=== PATIENT | male | born 1960 | race African-American/Black ===

== ENCOUNTER 2017-08-09 11:54 | Emergency (ER) | payer OTHER ==
[~2017-08-09] VITALS: Ht 180.3 cm; Wt 81.6 kg
[~2017-08-09 11:54] MED LIST: ATRIPLA TABLET1 EACH PO; AZITHROMYCIN250 MG PO
[2017-08-09 12:05] VITALS: BP 132/83
[2017-08-09] MEDS ORDERED: OCUFLOX5 ML OP (12:24)
[2017-08-09 12:33] VITALS: BP 132/83
--- NOTE | 2017-08-09 12:39 | Emergency Room Report ---
History of Present Illness General Chief Complaint: Eye Problems Source: Patient Present Illness HPI The patient is a 57-year-old male presenting for possible eye infection. He states that he noticed left eye redness 3 days prior. He states that he noticed a white discharge in the morning after. Pain is described as a 2/10 burning sensation. He denies any visual changes. He states that he has noticed redness in the right eye this morning. He denies any known sick contacts. He states that he uses contact lenses and washes them daily. Denies any injury to the eye recently. He denies any other symptoms including itching, fever, chills, cough, rash, JONES, dizziness Allergies: Coded Allergies: No Known Allergies (Unverified , 09/02/12) Patient History Past Medical History: see triage record Pertinent Family History: none Reviewed Nursing Documentation: PMH: Agreed, PSxH: Agreed Review of Systems All Other Systems: negative except mentioned in HPI Physical Exam Vital Signs Date Time Temp Pulse Resp B/P (MAP) Pulse Ox O2 Delivery O2 Flow Rate FiO2 08/09/17 12:05 98.2 76 16 132/83 98 Room Air Sp02 EP Interpretation: reviewed, normal General Appearance: no apparent distress, alert, GCS 15, non-toxic Head: normocephalic, atraumatic Eyes: left eye lid inflammation, left eye other - white DC, bilateral eye PERRL , bilateral eye EOMI, bilateral eye visual acuity - 20/25, bilateral eye Scleral Injection ENT: hearing grossly normal, normal pharynx, no angioedema, normal voice, uvula midline Neck: full range of motion, supple/symm/no masses Genitourinary: normal inspection, no CVA tenderness Musculoskeletal: back normal, gait/station normal, normal range of motion, non- tender Neurologic: alert, oriented x3, responsive, motor strength/tone normal, sensory intact, speech normal Psychiatric: judgement/insight normal, memory normal, mood/affect normal, no suicidal/homicidal ideation Skin: normal color, no rash, warm/dry, well hydrated Lymphatic: no adenopathy Medical Decision Making PA Attestation Dr. Rivas is my supervising physician. Patient management was discussed with my supervising physician Diagnostic Impression: Primary Impression: Conjunctivitis Qualified Codes: H10.33 - Unspecified acute conjunctivitis, bilateral ER Course The patient is a 57-year-old male presenting for possible eye infection Differential diagnoses considered but not limited to allergic conjunctivitis, bacterial conjunctivitis, viral conjunctivitis, blepharitis, hordeolum Physical exam: Vitals within normal limits. No apparent distress HEENT: There is left eye injection with white discharge and eyelid edema. EOMI. PERRL. R eye has injection only. Otherwise exam is unremarkable The patient will be discharged home with a prescription for ofloxacin and will follow up with PMD. ER precautions are given Last Vital Signs Date Time Temp Pulse Resp B/P (MAP) Pulse Ox O2 Delivery O2 Flow Rate FiO2 08/09/17 12:05 98.2 76 16 132/83 98 Room Air Status: improved Disposition: HOME, SELF-CARE Condition: Improved Scripts Ofloxacin (OCUFLOX) 5 Ml Drops 1 DROP OP Q4HR for 7 Days, ML Prov: HARJIT SAMUEL 08/09/17 Patient Instructions: Bacterial Conjunctivitis Additional Instructions: I discussed my findings with the patient. All questions and concerns have been answered. Treatment and medication compliance have been addressed. I advised the patient that they need to follow up with PMD in 3-5 days. Return to ED if symptoms worsen, new symptoms arise, or if needed for any reason. Patient verbalized understanding of discharge instructions. HARJIT SAMUEL Aug 09, 2017 12:39
== END 2017-08-09 12:33 | disposition home or self-care (01) ==
LOC: EMR 12:25
DX: H10.9 Unspecified conjunctivitis (principal)
CPT/HCPCS: 99283

== ENCOUNTER 2017-11-15 00:28 | Emergency (ER) | payer OTHER ==
[~2017-11-15] VITALS: Ht 183.5 cm; Wt 113.4 kg
[~2017-11-15 00:28] MED LIST changes: +OCUFLOX5 ML OP
[2017-11-15 00:35] VITALS: BP 171/96
[2017-11-15] MEDS ORDERED: GENVOYA TABLET1 EACH PO (00:39)
[2017-11-15] MEDS ORDERED: PREDNISONE20 MG ORAL (01:05)
[2017-11-15] MEDS ORDERED: ALBUTEROL SULF8.5 GM INH (01:05)
--- NOTE | 2017-11-15 01:05 | Emergency Room Report ---
History of Present Illness General Chief Complaint: Upper Respiratory Illness Source: Patient Present Illness HPI Is a 57-year-old male with a history HIV. He presents with complaint of cough and congestion. Onset yesterday. No nausea no vomiting. No fever or chills. Worse with inspiration. Worse with lying flat. Coughing is productive of whitish sputum. Allergies: Coded Allergies: No Known Allergies (Unverified , 09/02/12) Patient History Past Medical History: see triage record, old chart reviewed Past Surgical History: none Pertinent Family History: none Social History: Denies: smoking Immunizations: other Reviewed Nursing Documentation: PMH: Agreed, PSxH: Agreed Nursing Documentation-PMH Past Medical History: No History, Except For Review of Systems Eye: Denies: eye pain, blurred vision ENT: Denies: ear pain, nose congestion, throat swelling Respiratory: Reports: cough, shortness of breath Cardiovascular: Denies: chest pain, palpitations Gastrointestinal: Denies: abdominal pain, diarrhea, nausea, vomiting Musculoskeletal: Denies: back pain, joint pain Skin: Denies: rash Neurological: Denies: headache, numbness Endocrine: Denies: increased thirst, increased urine Hematologic/Lymphatic: Denies: easy bruising All Other Systems: negative except mentioned in HPI Physical Exam Vital Signs Date Time Temp Pulse Resp B/P (MAP) Pulse Ox O2 Delivery O2 Flow Rate FiO2 11/15/17 00:35 99.1 97 18 171/96 97 Room Air vitals with high blood pressure Sp02 EP Interpretation: reviewed, normal General Appearance: well appearing, no apparent distress, alert Head: normocephalic, atraumatic Eyes: bilateral eye PERRL, bilateral eye EOMI ENT: hearing grossly normal, normal pharynx Neck: full range of motion, supple, no meningismus Respiratory: chest non-tender, lungs clear, normal breath sounds Cardiovascular #1: regular rate, rhythm, no murmur Gastrointestinal: normal bowel sounds, non tender, no mass, no organomegaly, no bruit, non-distended Musculoskeletal: back normal, gait/station normal, normal range of motion Psychiatric: mood/affect normal Skin: warm/dry Medical Decision Making Diagnostic Impression: Primary Impression: Upper respiratory infection Qualified Codes: J06.9 - Acute upper respiratory infection, unspecified ER Course Patient with a viral upper respiratory infection. No evidence of ACS, PE, dissection, pneumonia to name a few. We'll discharge him with symptomatic treatment. Last Vital Signs Date Time Temp Pulse Resp B/P (MAP) Pulse Ox O2 Delivery O2 Flow Rate FiO2 11/15/17 00:35 99.1 97 18 171/96 97 Room Air Status: unchanged Disposition: HOME, SELF-CARE Condition: Stable Scripts Prednisone* (PREDNISONE*) 20 Mg Tablet 60 MG ORAL DAILY, #15 TAB Prov: AIDEN TALBOT M.D. 11/15/17 Albuterol Sulfate* (ALBUTEROL SULFATE MDI*) 8.5 Gm Hfa.aer.ad 2 PUFF INH Q4H Y for cough/wheezing, #1 EA 0 Refills Prov: AIDEN TALBOT M.D. 11/15/17 Additional Instructions: Followup with your DrKristi in 5-7 days. Return if symptom worsen. AIDEN TALBOT M.D. Nov 15, 2017 01:05
[2017-11-15 01:15] VITALS: BP 171/96
== END 2017-11-15 02:30 | disposition home or self-care (01) ==
LOC: EMR 02:30
DX: J06.9 Acute upper respiratory infection, unspecified (principal)
CPT/HCPCS: 99283

== ENCOUNTER 2017-12-09 10:19 | Inpatient (IN) | payer OTHER ==
[~2017-12-09] VITALS: Ht 182.9 cm; Wt 117.9 kg
[~2017-12-09 10:19] MED LIST changes: +ALBUTEROL SULF8.5 GM INH; +GENVOYA TABLET1 EACH PO; +PREDNISONE20 MG ORAL
[2017-12-09 10:40] VITALS: BP 143/72
[2017-12-09] MEDS ORDERED: Morphine Sulfate 4mg/ml Inj IVP ONE (11:00)
[2017-12-09 11:38] LABS: BASOPHILS % (AUTO) 0.6 % (0.0-2.0); EOSINOPHILS % (AUTO) 0.1 % (0.0-3.0); HEMATOCRIT 51.1 % (42.0-52.0); HEMOGLOBIN 17.1 G/DL (14.2-18.0); LYMPHOCYTES % (AUTO) 23.5 % (20.0-45.0); MEAN CORPUSCULAR VOLUME 99 FL (80-99); NEUTROPHILS % (AUTO) 70.8 % (45.0-75.0); PLATELET COUNT 325 K/UL (150-450); RED BLOOD COUNT 5.15 M/UL (4.70-6.10); RED CELL DISTRIBUTION WIDTH 12.5 % (11.6-14.8)
[2017-12-09 11:42] LABS: APPEARANCE,URINE CLEAR; BILIRUBIN, URINE NEGATIVE (NEGATIVE); COLOR,URINE BROWN; GLUCOSE, URINE (UA) NEGATIVE (NEGATIVE); KETONES,URINE 3+ (NEGATIVE); LEUKOCYTE ESTERASE ,URINE 1+ (NEGATIVE); NITRITE,URINE NEGATIVE (NEGATIVE); PH,URINE 7 (4.5-8.0); PROTEIN,URINE 2+ (NEGATIVE); UROBILINOGEN,URINE 8 MG/DL (0.0-1.0)
[2017-12-09 11:49] LABS: ANION GAP 9 mmol/L (5-15); BLOOD UREA NITROGEN 15 mg/dL (7-18); CALCIUM 9.5 MG/DL (8.5-10.1); CARBON DIOXIDE 32 MMOL/L (21-32); CHLORIDE 100 MMOL/L (98-107); POTASSIUM 3.4 MMOL/L (3.5-5.1); SODIUM 141 MMOL/L (136-145)
[2017-12-09 11:53] LABS: ALANINE AMINOTRANSFERASE 22 U/L (12-78); ALBUMIN 3.7 G/DL (3.4-5.0); ALBUMIN/GLOBULIN RATIO 0.9 (1.0-2.7); ALKALINE PHOSPHATASE 66 U/L (46-116); ASPARTATE AMINO TRANSFERASE 26 U/L (15-37); BILIRUBIN,TOTAL 0.6 MG/DL (0.2-1.0)
[2017-12-09 13:11] VITALS: BP 144/63
--- NOTE | 2017-12-09 13:39 | Emergency Room Report ---
History of Present Illness General Chief Complaint: Nausea, Vomiting, and Diarrhea Source: Patient Present Illness HPI Patient presents with complaints of diffuse abdominal pain He reports that 2 days ago she was given some kind of oil by coworker After taking that he had severe epigastric pain he reports diarrhea yesterday however now is constipated Pain is 10 out of 10 Patient has several episodes of vomiting Denies any back or flank pain Denies any fevers or chills denies any previous abdominal surgeries Allergies: Coded Allergies: No Known Allergies (Unverified , 09/02/12) Patient History Past Medical History: see triage record Past Surgical History: none Pertinent Family History: none Reviewed Nursing Documentation: PMH: Agreed, PSxH: Agreed Nursing Documentation-PMH Past Medical History: No History, Except For Review of Systems All Other Systems: negative except mentioned in HPI Physical Exam Vital Signs Date Time Temp Pulse Resp B/P (MAP) Pulse Ox O2 Delivery O2 Flow Rate FiO2 12/09/17 10:30 97.9 99 18 189/119 99 Room Air Sp02 EP Interpretation: reviewed, normal General Appearance: well appearing, no apparent distress Head: normocephalic, atraumatic Eyes: bilateral eye PERRL, bilateral eye EOMI ENT: hearing grossly normal, normal pharynx, TMs + canals normal, uvula midline Neck: full range of motion, supple, no meningismus, no bony tend Respiratory: lungs clear, normal breath sounds, no rhonchi, no respiratory distress, no retraction, no accessory muscle use Cardiovascular #1: normal peripheral pulses, regular rate, rhythm, no edema, no gallop, no JVD, no murmur Gastrointestinal: soft, no mass, no organomegaly, non-distended, no guarding, no hernia, no pulsatile mass, no rebound, distended, tenderness - Diffusely tender Genitourinary: no CVA tenderness Musculoskeletal: normal inspection Neurologic: oriented x3, responsive, director of reservations III-XII nml as tested, motor strength/ tone normal, sensory intact Psychiatric: mood/affect normal Skin: normal color, no rash, warm/dry, palpation normal Lymphatic: normal inspection, no adenopathy Medical Decision Making Diagnostic Impression: Primary Impression: Small bowel obstruction ER Course With the history exam and presentation, multiple differentials considered, including but not limited to appendicitis, gastritis, cholecystitis, diverticulitis Patient's blood work showed mildly elevated white blood cell count CT imaging shows concerning findings of possible bowel junction patient has done better with acute intervention at this time requiring inpatient care Patient does not have an NG tube as of yet as he does not have any active vomiting Labs Test 12/09/17 01:10 12/09/17 11:15 Urine Color Brown Urine Appearance Clear Urine pH 7 (4.5-8.0) Urine Specific [place] 1.005 (1.005-1.035) Urine Protein 2+ (NEGATIVE) Urine Glucose (UA) Negative (NEGATIVE) Urine Ketones 3+ (NEGATIVE) Urine Occult Blood 1+ (NEGATIVE) Urine Nitrite Negative (NEGATIVE) Urine Bilirubin Negative (NEGATIVE) Urine Urobilinogen 8 MG/DL (0.0-1.0) Urine Leukocyte Esterase 1+ (NEGATIVE) Urine RBC 2-4 /HPF (0 - 0) Urine WBC 2-4 /HPF (0 - 0) Urine Squamous Epithelial Cells Occasional /LPF Urine Bacteria Few /HPF (NONE) Urine Mucus Occasional /LPF White Blood Count 7.0 K/UL (4.8-10.8) Red Blood Count 5.15 M/UL (4.70-6.10) Hemoglobin 17.1 G/DL (14.2-18.0) Hematocrit 51.1 % (42.0-52.0) Mean Corpuscular Volume 99 FL (80-99) Mean Corpuscular Hemoglobin 33.1 PG (27.0-31.0) Mean Corpuscular Hemoglobin Concent 33.4 G/DL (32.0-36.0) Red Cell Distribution Width 12.5 % (11.6-14.8) Platelet Count 325 K/UL (150-450) Mean Platelet Volume 7.2 FL (6.5-10.1) Neutrophils (%) (Auto) 70.8 % (45.0-75.0) Lymphocytes (%) (Auto) 23.5 % (20.0-45.0) Monocytes (%) (Auto) 5.0 % (1.0-10.0) Eosinophils (%) (Auto) 0.1 % (0.0-3.0) Basophils (%) (Auto) 0.6 % (0.0-2.0) Sodium Level 141 MMOL/L (136-145) Potassium Level 3.4 MMOL/L (3.5-5.1) Chloride Level 100 MMOL/L (98-107) Carbon Dioxide Level 32 MMOL/L (21-32) Anion Gap 9 mmol/L (5-15) Blood Urea Nitrogen 15 mg/dL (7-18) Creatinine 1.0 MG/DL (0.55-1.30) Estimat Glomerular Filtration Rate > 60 mL/min (>60) Glucose Level 122 MG/DL (74-106) Calcium Level 9.5 MG/DL (8.5-10.1) Total Bilirubin 0.6 MG/DL (0.2-1.0) Aspartate Amino Transf (AST/SGOT) 26 U/L (15-37) Alanine Aminotransferase (ALT/SGPT) 22 U/L (12-78) Alkaline Phosphatase 66 U/L (46-116) Total Protein 8.0 G/DL (6.4-8.2) Albumin 3.7 G/DL (3.4-5.0) Globulin 4.3 g/dL Albumin/Globulin Ratio 0.9 (1.0-2.7) Lipase 57 U/L (73-393) Rhythm Strip Diag. Results EP Interpretation: yes Rate: 88 Rhythm: NSR, no PVC's, no ectopy CT/MRI/US Diagnostic Results CT/MRI/US Diagnostic Results : Impression CT abdomen pelvis: Refer to her report for full details, concerning findings of possible small bowel obstruction Last Vital Signs Date Time Temp Pulse Resp B/P (MAP) Pulse Ox O2 Delivery O2 Flow Rate FiO2 12/09/17 13:11 98.0 86 17 144/63 96 Room Air Status: improved Disposition: ADMITTED INPATIENT Condition: Serious Referrals: [facility],REFERRING (PCP) KAMLESH ZEPEDA D.O. Dec 09, 2017 13:39
[2017-12-09 14:17] VITALS: BP 143/72
--- NOTE | 2017-12-09 14:17 | Diagnostic Imaging Report ---
Indication: Abdominal pain Technique: Continuous helical transaxial imaging of the abdomen and pelvis was obtained from the lung bases to the pubic symphysis during intravenous contrast administration. Coronal 2-D reformats were also obtained. Study obtained in a Siemens sensation [address] Automatic Exposure Control was utilized. Total Dose length Product (DLP): 1042.[address] Dose Index Volume (CTDIvol): 17.49 mGy Comparison: None Findings: There are distended loops of proximal small bowel and marked distention of stomach demonstrated in the abdomen. There are several loops of nondistended small bowel including the terminal ileum. Findings suggest a bowel obstruction. The transition may be in the right side of the abdomen. The appendix is identified and appears normal. There is no free air or ascites. Mild constipation of the aorta demonstrated. Urinary bladder is unremarkable. The lung bases are clear. There is a hiatal hernia. There are multiple cysts present within the liver largest of which is in the left lobe measuring 7 cm. Gallbladder is unremarkable. The spleen is unremarkable. No abnormalities of the pancreas seen. Bilateral renal cysts are present. IMPRESSION: Suspicion of small bowel obstruction with transition somewhere in the distal jejunum or proximal ileum in the right side of abdomen. The precise transition point is not definitely seen. Other incidental findings as above The CT scanner at [facility] is accredited by the [employer] and the scans are performed using dose optimization techniques as appropriate to a performed exam including Automatic Exposure control.
--- NOTE | 2017-12-09 16:05 | Consultation ---
History of Present Illness General Date patient seen: Dec 09, 2017 Chief Complaint: Nausea, Vomiting, and Diarrhea Reason for Consultation: SBO Present Illness HPI 57 year old male with PMHx of HIV since 1989's on meds with high cell count and low viral load presented with 3 day history of worsening abdominal pain, nausea , emesis. As per patient, he was in his normal state of health until 3 days ago when he noted some vague abdominal discomfort. Since abdomen has become progressively more distended. Pain generalized cramping abdominal pain. Associated nausea and multiple episodes of non bloody emesis. no fever or chills. States that he initially had diarrhea 2-3 days ago but since has been constipated. Has noted some blood in stools. Last colonoscopy was 1 year ago and he has had 2 in his lifetime. no cancers noted. As pain progressed and he did not improve he came to ED for evaluation. States he is currently still nauseous but no recent emesis. CT scan performed and consistent with SBO. stomach enlarged with food particles. Surgery called to evaluate SBO. when asked patient denies prior abdominal surgery. no hernias. Allergies: Coded Allergies: No Known Allergies (Unverified , 09/02/12) Medication History Scheduled Azithromycin* (Zithromax*), 250 MG PO DAILY Efavirenz/Emtricitab/Tenofovir (Atripla Tablet), 1 EACH PO DAILY, (Reported) Ofloxacin (Ocuflox), 1 DROP OP Q4HR Prednisone* (Prednisone*), 60 MG ORAL DAILY Scheduled PRN Albuterol Sulfate* (Albuterol Sulfate Mdi*), 2 PUFF INH Q4H PRN for cough/ wheezing Miscellaneous Medications Elviteg/Glendy/Emtric/Tenofo Ala (Genvoya Tablet), 1 EACH PO, (Reported) Patient History History Provided By: Patient Healthcare decision maker Resuscitation status Advanced Directive on File Past Medical/Surgical History Past Medical/Surgical History: (1) HIV (human immunodeficiency virus infection) (2) Conjunctivitis (3) Small bowel obstruction Review of Systems Constitutional: Denies: no symptoms, see HPI, chills, sweats, fever, malaise, weakness, other Eye: Denies: no symptoms, see HPI, eye pain, blurred vision, tearing, double vision, nose pain, nose congestion, acuity changes, discharge, other ENT: Denies: no symptoms, see HPI, ear pain, ear discharge, nose pain, nose congestion, throat pain, throat swelling, mouth pain, hearing loss, nasal discharge, other Respiratory: Denies: no symptoms, see HPI, cough, orthopnea, shortness of breath, stridor, wheezing, BEST, sputum, other Cardiovascular: Denies: no symptoms, see HPI, chest pain, edema, palpitations, syncope, PND, other Gastrointestinal: Reports: abdominal pain, constipation, nausea, vomiting Genitourinary: Denies: no symptoms, see HPI, discharge, dysuria, frequency, hematuria, pain, retention, incontinence, urgency, vag bleed/dc, other Musculoskeletal: Denies: no symptoms, see HPI, back pain, gout, joint pain, joint swelling, muscle pain, muscle stiffness, other Skin: Denies: no symptoms, see HPI, rash, change in color, change in hair/nails , dryness, lesions, other Psychiatric: Denies: no symptoms, see HPI, prior hx, anxiety, depressed feelings, emotional problems, SI, HI, hallucinations, other Neurological: Denies: no symptoms, see HPI, headache, numbness, paresthesia, seizure, tingling, tremors, focal weakness, syncope, dizziness, other Endocrine: Denies: no symptoms, see HPI, excessive sweating, flushing, intolerance to temperature, increased thirst, increased urine, unexplained weight loss, other Hematologic/Lymphatic: Denies: no symptoms, see HPI, anemia, blood clots, easy bleeding, easy bruising, swollen glands, diathesis, other Physical Exam General Appearance: no apparent distress, alert Lines, tubes and drains: peripheral HEENT: normocephalic, mucous membranes moist, PERRL Neck: supple, normal inspection Respiratory/Chest: normal breath sounds, no respiratory distress, no accessory muscle use Cardiovascular/Chest: normal peripheral pulses, normal rate Abdomen: non tender, soft, no organomegaly, no mass, hypoactive bowel sounds, distended, other - soft, distended, no real tenderness, some cramping, no guarding or rebound. no peritonitis Extremities: normal inspection Skin Exam: normal pigmentation, warm/dry Neurologic: alert, oriented x 3, responsive Last 24 Hour Vital Signs Date Time Temp Pulse Resp B/P (MAP) Pulse Ox O2 Delivery O2 Flow Rate FiO2 12/09/17 14:17 98.0 87 15 143/72 99 Room Air 12/09/17 13:11 98.0 86 17 144/63 96 Room Air 12/09/17 11:47 97.8 12/09/17 10:40 97.6 86 18 143/72 99 Room Air 12/09/17 10:30 97.9 99 18 189/119 99 Room Air Laboratory Tests Test 12/09/17 01:10 12/09/17 11:15 Urine Color Brown Urine Appearance Clear Urine pH 7 (4.5-8.0) Urine Specific [place] 1.005 (1.005-1.035) Urine Protein 2+ (NEGATIVE) H Urine Glucose (UA) Negative (NEGATIVE) Urine Ketones 3+ (NEGATIVE) H Urine Occult Blood 1+ (NEGATIVE) H Urine Nitrite Negative (NEGATIVE) Urine Bilirubin Negative (NEGATIVE) Urine Urobilinogen 8 MG/DL (0.0-1.0) H Urine Leukocyte Esterase 1+ (NEGATIVE) H Urine RBC 2-4 /HPF (0 - 0) H Urine WBC 2-4 /HPF (0 - 0) Urine Squamous Epithelial Cells Occasional /LPF Urine Bacteria Few /HPF (NONE) Urine Mucus Occasional /LPF White Blood Count 7.0 K/UL (4.8-10.8) Red Blood Count 5.15 M/UL (4.70-6.10) Hemoglobin 17.1 G/DL (14.2-18.0) Hematocrit 51.1 % (42.0-52.0) Mean Corpuscular Volume 99 FL (80-99) Mean Corpuscular Hemoglobin 33.1 PG (27.0-31.0) H Mean Corpuscular Hemoglobin Concent 33.4 G/DL (32.0-36.0) Red Cell Distribution Width 12.5 % (11.6-14.8) Platelet Count 325 K/UL (150-450) Mean Platelet Volume 7.2 FL (6.5-10.1) Neutrophils (%) (Auto) 70.8 % (45.0-75.0) Lymphocytes (%) (Auto) 23.5 % (20.0-45.0) Monocytes (%) (Auto) 5.0 % (1.0-10.0) Eosinophils (%) (Auto) 0.1 % (0.0-3.0) Basophils (%) (Auto) 0.6 % (0.0-2.0) Sodium Level 141 MMOL/L (136-145) Potassium Level 3.4 MMOL/L (3.5-5.1) L Chloride Level 100 MMOL/L (98-107) Carbon Dioxide Level 32 MMOL/L (21-32) Anion Gap 9 mmol/L (5-15) Blood Urea Nitrogen 15 mg/dL (7-18) Creatinine 1.0 MG/DL (0.55-1.30) Estimat Glomerular Filtration Rate > 60 mL/min (>60) Glucose Level 122 MG/DL (74-106) H Calcium Level 9.5 MG/DL (8.5-10.1) Total Bilirubin 0.6 MG/DL (0.2-1.0) Aspartate Amino Transf (AST/SGOT) 26 U/L (15-37) Alanine Aminotransferase (ALT/SGPT) 22 U/L (12-78) Alkaline Phosphatase 66 U/L (46-116) Total Protein 8.0 G/DL (6.4-8.2) Albumin 3.7 G/DL (3.4-5.0) Globulin 4.3 g/dL Albumin/Globulin Ratio 0.9 (1.0-2.7) L Lipase 57 U/L (73-393) L Height (Feet): 6 Weight (Pounds): 260 Assessment/Plan Problem List: (1) Small bowel obstruction Assessment & Plan: 57M with virgin abdomen presented with SBO. CT scan reviewed and transition point in lower abdomen. No acute pathology identified. Stomach and bowel significantly distended with food particles. On exam distended, non tender. Unfortunately a 57 year old male with virgin abdomen and small bowel obstruction is very concerning. possible malignant process? given history of long tern HIV multiple other differentials as well. fortunately exam benign at this time. Will begin with conservative management and bowel decompression. Then will need further work up over the next few days. May likely need surgery during this admission but given stable now will benefit from decompression and optimization prior to operation. -NPO. okay for ice chips -IV fluids -NG tube to low intermittent suction (20-40mmHg) -Ambulate and Out of bed -AM labs -will follow exam. thank you for this consult. will follow with recs. ICD Codes: K56.609 - Unspecified intestinal obstruction, unspecified as to partial versus complete obstruction SNOMED: 678885081 Status: stable Nawaf Wolff Dec 09, 2017 16:05
[2017-12-09] MEDS ORDERED: Mylanta II UD 30ml ORAL PRN (16:15)
[2017-12-09] MEDS ORDERED: Morphine Sulfate 2mg/ml Inj IVP PRN ×2 (16:15)
[2017-12-09] MEDS ORDERED: Morphine Sulfate 4mg/ml Inj IVP PRN (16:15)
[2017-12-09] MEDS: D5 1/2NS w/KCl 20mEq 1,000 ML IV SCH (18:00)
[2017-12-09] MEDS: Heparin 5000 units/ml inj SUBQ SCH (21:56)
[2017-12-09] MEDS ORDERED: GENVOYA TABLET1 EACH PO (22:30)
[2017-12-10] VITALS: BP 134/78
[2017-12-10] MEDS: D5 1/2NS w/KCl 20mEq 1,000 ML IV SCH ×3 (02:57→14:47)
[2017-12-10 04:00] VITALS: BP 143/86
[2017-12-10 08:15] VITALS: BP 143/85
--- NOTE | 2017-12-10 08:25 | General Progress Note ---
Assessment/Plan Problem List: (1) HIV (human immunodeficiency virus infection) ICD Codes: B20 - Human immunodeficiency virus [HIV] disease SNOMED: 39355174 (2) Small bowel obstruction ICD Codes: K56.609 - Unspecified intestinal obstruction, unspecified as to partial versus complete obstruction SNOMED: 425399319 Assessment/Plan NGT is placed again NGT to suction npo ivf pain control fu surgery recs may need to be transferred due to insurance will fu Subjective ROS Limited/Unobtainable: Yes Allergies: Coded Allergies: No Known Allergies (Unverified , 09/02/12) Subjective abd pain Objective Last 24 Hour Vital Signs Date Time Temp Pulse Resp B/P (MAP) Pulse Ox O2 Delivery O2 Flow Rate FiO2 12/10/17 04:00 97.9 72 20 143/86 98 Room Air 12/10/17 00:00 97.9 90 19 134/78 97 Room Air 12/09/17 20:00 97.5 96 19 94 Room Air 12/09/17 16:45 84 18 149/68 97 Room Air 12/09/17 14:17 98.0 87 15 143/72 99 Room Air 12/09/17 13:11 98.0 86 17 144/63 96 Room Air 12/09/17 11:47 97.8 12/09/17 10:40 97.6 86 18 143/72 99 Room Air 12/09/17 10:30 97.9 99 18 189/119 99 Room Air Intake and Output 12/09/17 12/10/17 19:00 07:00 Intake Total 100 ml 1000 ml Output Total 300 ml Balance 100 ml 700 ml Intake IV Total 100 ml 1000 ml Output Urine Total 300 ml # Voids 2 1 # Bowel Movements 1 Laboratory Tests 12/09/17 11:15: White Blood Count 7.0, Red Blood Count 5.15, Hemoglobin 17.1, Hematocrit 51.1, Mean Corpuscular Volume 99, Mean Corpuscular Hemoglobin 33.1H, Mean Corpuscular Hemoglobin Concent 33.4, Red Cell Distribution Width 12.5, Platelet Count 325, Mean Platelet Volume 7.2, Neutrophils (%) (Auto) 70.8, Lymphocytes (%) (Auto) 23.5, Monocytes (%) (Auto) 5.0, Eosinophils (%) (Auto) 0.1, Basophils (%) (Auto ) 0.6, Sodium Level 141, Potassium Level 3.4L, Chloride Level 100, Carbon Dioxide Level 32, Anion Gap 9, Blood Urea Nitrogen 15, Creatinine 1.0, Estimat Glomerular Filtration Rate > 60, Glucose Level 122H, Calcium Level 9.5, Total Bilirubin 0.6, Aspartate Amino Transf (AST/SGOT) 26, Alanine Aminotransferase ( ALT/SGPT) 22, Alkaline Phosphatase 66, Total Protein 8.0, Albumin 3.7, Globulin 4.3, Albumin/Globulin Ratio 0.9L, Lipase 57L Height (Feet): 6 Height (Inches): 0.00 Weight (Pounds): 260 General Appearance: alert EENT: normal ENT inspection Neck: supple Cardiovascular: normal rate Respiratory/Chest: decreased breath sounds Abdomen: hypoactive bowel sounds, distended, tender Extremities: non-tender MANJU BARAJAS Dec 10, 2017 08:25
[2017-12-10 09:04] LABS: BASOPHILS % (AUTO) 1.4 % (0.0-2.0); EOSINOPHILS % (AUTO) 0.8 % (0.0-3.0); HEMATOCRIT 43.3 % (42.0-52.0); HEMOGLOBIN 14.8 G/DL (14.2-18.0); LYMPHOCYTES % (AUTO) 46.9 % (20.0-45.0); MEAN CORPUSCULAR VOLUME 99 FL (80-99); MONOCYTES % (AUTO) 9.5 % (1.0-10.0); NEUTROPHILS % (AUTO) 41.3 % (45.0-75.0); PLATELET COUNT 323 K/UL (150-450); RED BLOOD COUNT 4.39 M/UL (4.70-6.10); RED CELL DISTRIBUTION WIDTH 12.1 % (11.6-14.8); WHITE BLOOD COUNT 5.8 K/UL (4.8-10.8)
[2017-12-10 09:33] LABS: ALANINE AMINOTRANSFERASE 10 U/L (12-78); ALBUMIN 3.1 G/DL (3.4-5.0); ALBUMIN/GLOBULIN RATIO 0.9 (1.0-2.7); ALKALINE PHOSPHATASE 46 U/L (46-116); ANION GAP 5 mmol/L (5-15); ASPARTATE AMINO TRANSFERASE 14 U/L (15-37); BILIRUBIN,TOTAL 0.4 MG/DL (0.2-1.0); BLOOD UREA NITROGEN 11 mg/dL (7-18); CALCIUM 8.5 MG/DL (8.5-10.1); CARBON DIOXIDE 30 MMOL/L (21-32); CHLORIDE 105 MMOL/L (98-107); CHOLESTEROL 101 MG/DL (< 200); HDL CHOLESTEROL 37 MG/DL (40-60); POTASSIUM 3.4 MMOL/L (3.5-5.1); SODIUM 140 MMOL/L (136-145); TRIGLYCERIDES 65 MG/DL (30-150)
--- NOTE | 2017-12-10 09:48 | Diagnostic Imaging Report ---
Indication: Post nasogastric tube placement Technique: Supine view of the upper abdomen Comparison: none Findings: There is a nasogastric tube in place, tip projected at the level of the gastric fundus, proximal port beyond the gastroesophageal junction. Prominent gas-filled nondilated small bowel loops are noted Impression: Satisfactory position of nasogastric tube. This agrees with the preliminary interpretation provided overnight by [facility].
[2017-12-10] MEDS: Heparin 5000 units/ml inj SUBQ SCH ×2 (10:11→20:43)
--- NOTE | 2017-12-10 11:11 | Diagnostic Imaging Report ---
Indication: Abdominal distention Technique: Supine view of the abdomen Comparison: 12/09/2017 Findings: Body habitus limits evaluation. Previously demonstrated nasogastric tube does not appear to be as far into the stomach as previously. The proximal port position cannot be definitely visualized but could be at or above the gastric esophageal junction. Possibly distended gas-filled small bowel loops are demonstrated but not well visualized. Overall amount of bowel gas appears to be decreased from the previous exam. Gas-filled nondilated colon also demonstrated. No definite unusual masses or calcifications. Impression: Apparent slight interim retraction of nasogastric tube. Advancement recommended. This finding was reported to patient's nurse at the time of interpretation Suspect overall decreased gaseous distention of small bowel
--- NOTE | 2017-12-10 11:47 | General Surgery Progress Note ---
General Surgery-Progress Note Subjective Symptoms: improved, pain absent, voiding well, passing flatus Additional Comments no acute events. states he feels much better today. no n/v/f/c. ambulatory. abdomen much less distended. no pain. passing flatus. no BM. ng tube with non bilious liquid output. Objective Last 24 Hour Vital Signs Date Time Temp Pulse Resp B/P (MAP) Pulse Ox O2 Delivery O2 Flow Rate FiO2 12/10/17 08:15 96.8 98 18 143/85 98 Room Air 12/10/17 04:00 97.9 72 20 143/86 98 Room Air 12/10/17 00:00 97.9 90 19 134/78 97 Room Air 12/09/17 20:00 97.5 96 19 94 Room Air 12/09/17 16:45 84 18 149/68 97 Room Air 12/09/17 14:17 98.0 87 15 143/72 99 Room Air 12/09/17 13:11 98.0 86 17 144/63 96 Room Air 12/09/17 11:47 97.8 I&O Intake and Output 12/09/17 12/10/17 19:00 07:00 Intake Total 100 ml 1000 ml Output Total 300 ml Balance 100 ml 700 ml Intake IV Total 100 ml 1000 ml Output Urine Total 300 ml # Voids 2 1 # Bowel Movements 1 Drains: other - ng tube Cardiovascular: RSR Respiratory: clear Abdomen: soft, distended, non-tender, present bowel sounds Extremities: no edema, no tenderness, no cyanosis Laboratory Tests Test 12/10/17 08:10 White Blood Count 5.8 K/UL (4.8-10.8) Red Blood Count 4.39 M/UL (4.70-6.10) L Hemoglobin 14.8 G/DL (14.2-18.0) Hematocrit 43.3 % (42.0-52.0) Mean Corpuscular Volume 99 FL (80-99) Mean Corpuscular Hemoglobin 33.8 PG (27.0-31.0) H Mean Corpuscular Hemoglobin Concent 34.3 G/DL (32.0-36.0) Red Cell Distribution Width 12.1 % (11.6-14.8) Platelet Count 323 K/UL (150-450) Mean Platelet Volume 6.9 FL (6.5-10.1) Neutrophils (%) (Auto) 41.3 % (45.0-75.0) L Lymphocytes (%) (Auto) 46.9 % (20.0-45.0) H Monocytes (%) (Auto) 9.5 % (1.0-10.0) Eosinophils (%) (Auto) 0.8 % (0.0-3.0) Basophils (%) (Auto) 1.4 % (0.0-2.0) Prothrombin Time 10.6 SEC (9.30-11.50) Prothromb Time International Ratio 1.0 (0.9-1.1) Activated Partial Thromboplast Time 27 SEC (23-33) Sodium Level 140 MMOL/L (136-145) Potassium Level 3.4 MMOL/L (3.5-5.1) L Chloride Level 105 MMOL/L (98-107) Carbon Dioxide Level 30 MMOL/L (21-32) Anion Gap 5 mmol/L (5-15) Blood Urea Nitrogen 11 mg/dL (7-18) Creatinine 1.0 MG/DL (0.55-1.30) Estimat Glomerular Filtration Rate > 60 mL/min (>60) Glucose Level 101 MG/DL (74-106) Hemoglobin A1c 5.8 % (4.3-6.0) Calcium Level 8.5 MG/DL (8.5-10.1) Total Bilirubin 0.4 MG/DL (0.2-1.0) Aspartate Amino Transf (AST/SGOT) 14 U/L (15-37) L Alanine Aminotransferase (ALT/SGPT) 10 U/L (12-78) L Alkaline Phosphatase 46 U/L (46-116) Pro-B-Type Natriuretic Peptide 38 pg/mL (0-125) Total Protein 6.7 G/DL (6.4-8.2) Albumin 3.1 G/DL (3.4-5.0) L Globulin 3.6 g/dL Albumin/Globulin Ratio 0.9 (1.0-2.7) L Triglycerides Level 65 MG/DL (30-150) Cholesterol Level 101 MG/DL (< 200) LDL Cholesterol 56 mg/dL (<100) HDL Cholesterol 37 MG/DL (40-60) L Cholesterol/HDL Ratio 2.7 (3.3-4.4) L Thyroid Stimulating Hormone (TSH) 1.181 uiU/mL (0.358-3.740) Plan Problems: (1) Small bowel obstruction Assessment & Plan: 57M with virgin abdomen presented with SBO. CT scan reviewed and transition point possibly in lower abdomen but not completely defined. No acute pathology identified. Stomach and bowel significantly distended with food particles. On exam distended, non tender. Unfortunately a 57 year old male with virgin abdomen and small bowel obstruction is very concerning. possible malignant process? given history of long tern HIV multiple other differentials as well. fortunately exam benign at this time. Will begin with conservative management and bowel decompression. Then will need further work up over the next few days. May likely need surgery during this admission but given stable now will benefit from decompression and optimization prior to operation. Doing well with decompression. symptoms resolving. abdomen much improved today. NG tube output decreasing. passing flatus now. Hopefully partial SBO and will resolve with conservative management as he is improving. This will allow time for more accurate diagnosis and work up for etiology prior to surgery. furthermore if able to decompress abdomen significantly can potentially consider laparoscopic intervention if needed. -NPO. okay for ice chips -IV fluids -NG tube to low intermittent suction (20-40mmHg) -Ambulate and Out of bed -AM labs -will follow exam. thank you for this consult. will follow with milagro. Nawaf Wolff Dec 10, 2017 11:47
[2017-12-10 12:00] VITALS: BP 146/86
[2017-12-10 16:06] VITALS: BP 125/77
[2017-12-10 20:00] VITALS: BP 148/79
[2017-12-10] MEDS: LORazepam Inj 2mg/ml 1ml IV PRN (23:06)
[2017-12-11] VITALS: BP 122/78
[2017-12-11 04:00] VITALS: BP 133/75
[2017-12-11] MEDS: D5 1/2NS w/KCl 20mEq 1,000 ML IV SCH ×2 (04:57→18:04)
--- NOTE | 2017-12-11 07:29 | General Progress Note ---
Assessment/Plan Problem List: (1) HIV (human immunodeficiency virus infection) ICD Codes: B20 - Human immunodeficiency virus [HIV] disease SNOMED: 28546625 (2) Small bowel obstruction ICD Codes: K56.609 - Unspecified intestinal obstruction, unspecified as to partial versus complete obstruction SNOMED: 021837696 Assessment/Plan ? SBO resolving if passes gas again today will recommend to dc NGT and start clears if ok with surg last colonoscopy per patient a year ago Subjective ROS Limited/Unobtainable: Yes Allergies: Coded Allergies: No Known Allergies (Unverified , 09/02/12) Subjective abd pain sig better no BM flatus last night Objective Last 24 Hour Vital Signs Date Time Temp Pulse Resp B/P (MAP) Pulse Ox O2 Delivery O2 Flow Rate FiO2 12/11/17 04:00 98.3 78 21 133/75 96 12/11/17 00:00 97.9 91 21 122/78 98 12/10/17 20:00 98.2 83 21 148/79 95 12/10/17 16:06 97.8 78 18 125/77 77 Room Air 12/10/17 12:00 98.0 88 19 146/86 98 Room Air 12/10/17 08:15 96.8 98 18 143/85 98 Room Air Intake and Output 12/10/17 12/11/17 19:00 07:00 Intake Total 100 ml 900 ml Output Total 700 ml Balance 100 ml 200 ml Intake IV Total 100 ml 900 ml Output Urine Total 400 ml Gastric Drainage Total 300 ml # Voids 5 Laboratory Tests 12/10/17 08:10: White Blood Count 5.8, Red Blood Count 4.39L, Hemoglobin 14.8, Hematocrit 43.3, Mean Corpuscular Volume 99, Mean Corpuscular Hemoglobin 33.8H, Mean Corpuscular Hemoglobin Concent 34.3, Red Cell Distribution Width 12.1, Platelet Count 323, Mean Platelet Volume 6.9, Neutrophils (%) (Auto) 41.3L, Lymphocytes (%) (Auto) 46.9H, Monocytes (%) (Auto) 9.5, Eosinophils (%) (Auto) 0.8, Basophils (%) (Auto ) 1.4, Prothrombin Time 10.6, Prothromb Time International Ratio 1.0, Activated Partial Thromboplast Time 27, Sodium Level 140, Potassium Level 3.4L, Chloride Level 105, Carbon Dioxide Level 30, Anion Gap 5, Blood Urea Nitrogen 11, Creatinine 1.0, Estimat Glomerular Filtration Rate > 60, Glucose Level 101, Hemoglobin A1c 5.8, Calcium Level 8.5, Total Bilirubin 0.4, Aspartate Amino Transf (AST/SGOT) 14L, Alanine Aminotransferase (ALT/SGPT) 10L, Alkaline Phosphatase 46, Pro-B-Type Natriuretic Peptide 38, Total Protein 6.7, Albumin 3.1L, Globulin 3.6, Albumin/Globulin Ratio 0.9L, Triglycerides Level 65, Cholesterol Level 101, LDL Cholesterol 56, HDL Cholesterol 37L, Cholesterol/HDL Ratio 2.7L, Thyroid Stimulating Hormone (TSH) 1.181 Height (Feet): 6 Height (Inches): 0.00 Weight (Pounds): 260 General Appearance: alert EENT: normal ENT inspection Neck: supple Cardiovascular: normal rate Respiratory/Chest: lungs clear Abdomen: normal bowel sounds, non tender, soft Extremities: non-tender MANJU BARAJAS Dec 11, 2017 07:29
[2017-12-11 08:15] VITALS: BP 122/74
[2017-12-11 08:25] LABS: BASOPHILS % (AUTO) 0.8 % (0.0-2.0); EOSINOPHILS % (AUTO) 3.7 % (0.0-3.0); HEMATOCRIT 39.6 % (42.0-52.0); HEMOGLOBIN 13.6 G/DL (14.2-18.0); LYMPHOCYTES % (AUTO) 52.1 % (20.0-45.0); MEAN CORPUSCULAR VOLUME 99 FL (80-99); MONOCYTES % (AUTO) 10.5 % (1.0-10.0); NEUTROPHILS % (AUTO) 32.9 % (45.0-75.0); PLATELET COUNT 310 K/UL (150-450); RED BLOOD COUNT 4.01 M/UL (4.70-6.10); WHITE BLOOD COUNT 5.6 K/UL (4.8-10.8)
[2017-12-11 08:32] LABS: ANION GAP 7 mmol/L (5-15); BLOOD UREA NITROGEN 10 mg/dL (7-18); CALCIUM 8.4 MG/DL (8.5-10.1); CARBON DIOXIDE 26 MMOL/L (21-32); CHLORIDE 106 MMOL/L (98-107); CREATININE 0.9 MG/DL (0.55-1.30); POTASSIUM 3.3 MMOL/L (3.5-5.1); SODIUM 139 MMOL/L (136-145)
--- NOTE | 2017-12-11 08:51 | Pulmonology Progress Note ---
Assessment/Plan Assessment/Plan Problem List: (1) HIV (human immunodeficiency virus infection) ICD Codes: B20 - Human immunodeficiency virus [HIV] disease (2) Small bowel obstruction ICD Codes: K56.609 - Unspecified intestinal obstruction, unspecified as to partial versus complete obstruction Assessment/Plan SBO resolving if passes flatus again today; consider dc NGT and start clears if ok with surg Subjective Interval Events: Better Constitutional: Reports: no symptoms HEENT: Repors: no symptoms Respiratory: Reports: no symptoms Cardiovascular: Reports: no symptoms Gastrointestinal/Abdominal: Reports: no symptoms Allergies: Coded Allergies: No Known Allergies (Unverified , 09/02/12) Objective Last 24 Hour Vital Signs Date Time Temp Pulse Resp B/P (MAP) Pulse Ox O2 Delivery O2 Flow Rate FiO2 12/11/17 08:15 97.9 76 21 122/74 97 Room Air 12/11/17 04:00 98.3 78 21 133/75 96 12/11/17 00:00 97.9 91 21 122/78 98 12/10/17 20:00 98.2 83 21 148/79 95 12/10/17 16:06 97.8 78 18 125/77 77 Room Air 12/10/17 12:00 98.0 88 19 146/86 98 Room Air Intake and Output 12/10/17 12/11/17 19:00 07:00 Intake Total 100 ml 900 ml Output Total 700 ml Balance 100 ml 200 ml Intake IV Total 100 ml 900 ml Output Urine Total 400 ml Gastric Drainage Total 300 ml # Voids 5 General Appearance: no acute distress HEENT: normocephalic Respiratory/Chest: chest wall non-tender, lungs clear Cardiovascular: normal peripheral pulses, normal rate Abdomen: hypoactive bowel sounds Extremities: no cyanosis Laboratory Tests 12/11/17 06:20: White Blood Count 5.6, Red Blood Count 4.01L, Hemoglobin 13.6L, Hematocrit 39.6L , Mean Corpuscular Volume 99, Mean Corpuscular Hemoglobin 34.0H, Mean Corpuscular Hemoglobin Concent 34.4, Red Cell Distribution Width 12.0, Platelet Count 310, Mean Platelet Volume 7.0, Neutrophils (%) (Auto) 32.9L, Lymphocytes ( %) (Auto) 52.1H, Monocytes (%) (Auto) 10.5H, Eosinophils (%) (Auto) 3.7H, Basophils (%) (Auto) 0.8, Sodium Level 139, Potassium Level 3.3L, Chloride Level 106, Carbon Dioxide Level 26, Anion Gap 7, Blood Urea Nitrogen 10, Creatinine 0.9, Estimat Glomerular Filtration Rate > 60, Glucose Level 88, Calcium Level 8.4L Current Medications Medications (Trade) Dose Ordered Sig/Delmer Route PRN Reason Start Time Stop Time Status Last Admin Dose Admin Al Hydroxide/Mg Hydroxide (Mylanta II) 30 ml Q6H PRN ORAL dyspepsia 12/09/17 16:15 01/08/18 16:14 Dextrose (Dextrose 50%) STAT PRN IV Hypoglycemia 12/09/17 16:15 01/08/18 16:14 Dextrose/ Electrolytes 1,000 ml @ 100 mls/hr Q10H IV 12/09/17 17:30 01/08/18 17:29 12/11/17 04:57 Famotidine (Pepcid I.v.) 20 mg Q12HR IVP 12/09/17 21:00 01/08/18 20:59 12/10/17 20:41 Heparin Sodium (Porcine) (Heparin 5000 units/ml) 5,000 units EVERY 12 HOURS SUBQ 12/09/17 21:00 01/08/18 20:59 12/10/17 20:43 Lorazepam (Ativan 2mg/ml 1ml) 0.5 mg Q4H PRN IV For Anxiety 12/09/17 16:15 12/16/17 16:14 12/10/17 23:06 Morphine Sulfate (Morphine Sulfate) 1 mg EVERY 4 HOURS PRN IVP Mild Pain (Pain Scale 1-3) 12/09/17 16:15 12/16/17 16:14 Morphine Sulfate (Morphine Sulfate) 2 mg EVERY 4 HOURS PRN IVP Moderate Pain (Pain Scale 4-6) 12/09/17 16:15 12/16/17 16:14 Morphine Sulfate (Morphine Sulfate) 4 mg EVERY 4 HOURS PRN IVP Severe Pain (Pain Scale 7-10) 12/09/17 16:15 12/16/17 16:14 Ondansetron HCl (Zofran) 4 mg Q6H PRN IVP Nausea & Vomiting 12/09/17 16:15 01/08/18 16:14 Prochlorperazine (Compazine) 10 mg Q6H PRN IVP Nausea & Vomiting 12/09/17 16:15 01/08/18 16:14 Breezy Reyna MD Dec 11, 2017 08:50
[2017-12-11] MEDS: Heparin 5000 units/ml inj SUBQ SCH ×2 (08:58→20:42)
[2017-12-11] MEDS ORDERED: Piperacillin/Tazobactam 3.375 GM in NS 110 ML IVPB SCH (10:00)
--- NOTE | 2017-12-11 10:30 | General Surgery Progress Note ---
General Surgery-Progress Note Subjective Symptoms: improved, passing flatus Additional Comments doing well. no acute events. comfortable. passing flatus. no BM. no n/v/f/c. Objective Last 24 Hour Vital Signs Date Time Temp Pulse Resp B/P (MAP) Pulse Ox O2 Delivery O2 Flow Rate FiO2 12/11/17 08:15 97.9 76 21 122/74 97 Room Air 12/11/17 04:00 98.3 78 21 133/75 96 12/11/17 00:00 97.9 91 21 122/78 98 12/10/17 20:00 98.2 83 21 148/79 95 12/10/17 16:06 97.8 78 18 125/77 77 Room Air 12/10/17 12:00 98.0 88 19 146/86 98 Room Air I&O Intake and Output 12/10/17 12/11/17 19:00 07:00 Intake Total 100 ml 900 ml Output Total 700 ml Balance 100 ml 200 ml Intake IV Total 100 ml 900 ml Output Urine Total 400 ml Gastric Drainage Total 300 ml # Voids 5 Cardiovascular: RSR Respiratory: clear Abdomen: soft, distended, non-tender, present bowel sounds Extremities: no edema, no tenderness Laboratory Tests Test 12/11/17 06:20 White Blood Count 5.6 K/UL (4.8-10.8) Red Blood Count 4.01 M/UL (4.70-6.10) L Hemoglobin 13.6 G/DL (14.2-18.0) L Hematocrit 39.6 % (42.0-52.0) L Mean Corpuscular Volume 99 FL (80-99) Mean Corpuscular Hemoglobin 34.0 PG (27.0-31.0) H Mean Corpuscular Hemoglobin Concent 34.4 G/DL (32.0-36.0) Red Cell Distribution Width 12.0 % (11.6-14.8) Platelet Count 310 K/UL (150-450) Mean Platelet Volume 7.0 FL (6.5-10.1) Neutrophils (%) (Auto) 32.9 % (45.0-75.0) L Lymphocytes (%) (Auto) 52.1 % (20.0-45.0) H Monocytes (%) (Auto) 10.5 % (1.0-10.0) H Eosinophils (%) (Auto) 3.7 % (0.0-3.0) H Basophils (%) (Auto) 0.8 % (0.0-2.0) Sodium Level 139 MMOL/L (136-145) Potassium Level 3.3 MMOL/L (3.5-5.1) L Chloride Level 106 MMOL/L (98-107) Carbon Dioxide Level 26 MMOL/L (21-32) Anion Gap 7 mmol/L (5-15) Blood Urea Nitrogen 10 mg/dL (7-18) Creatinine 0.9 MG/DL (0.55-1.30) Estimat Glomerular Filtration Rate > 60 mL/min (>60) Glucose Level 88 MG/DL (74-106) Calcium Level 8.4 MG/DL (8.5-10.1) L Plan Problems: (1) Small bowel obstruction Assessment & Plan: 57M with virgin abdomen presented with SBO. CT scan reviewed and transition point possibly in lower abdomen but not completely defined. No acute pathology identified. Stomach and bowel significantly distended with food particles. On exam distended, non tender. Unfortunately a 57 year old male with virgin abdomen and small bowel obstruction is very concerning. possible malignant process? given history of long tern HIV multiple other differentials as well. fortunately exam benign at this time. Will begin with conservative management and bowel decompression. Then will need further work up over the next few days. May likely need surgery during this admission but given stable now will benefit from decompression and optimization prior to operation. Doing well with decompression. symptoms resolving. abdomen much improved today. NG tube output decreasing. passing flatus now. Hopefully partial SBO and will resolve with conservative management as he is improving. This will allow time for more accurate diagnosis and work up for etiology prior to surgery. furthermore if able to decompress abdomen significantly can potentially consider laparoscopic intervention if needed. -NPO. okay for ice chips and sips of ater -IV fluids -NG tube to low intermittent suction -Plan to do Upper GI series tomorrow to see if can identify etiology of obstruction (mass, lead point, etc.) currently seems that partial SBO and improving. will do contrast through NG tube. will leave NG tube in place just in case does not tolerate and needs to have contrast suctioned up rather than emesis. -Ambulate and Out of bed -AM labs -will follow exam. thank you for this consult. will follow with recs. Nawaf Wolff Dec 11, 2017 10:30
[2017-12-11 12:15] VITALS: BP 137/80
[2017-12-11 15:56] VITALS: BP 137/97
[2017-12-11] MEDS ORDERED: Chloraseptic Spray 20mL Bottle ORAL PRN (16:30)
[2017-12-11 20:00] VITALS: BP 155/89
[2017-12-11] MEDS: LORazepam Inj 2mg/ml 1ml IV PRN (22:07)
--- NOTE | 2017-12-11 23:05 | History and Physical Report ---
DATE OF ADMISSION: 12/09/2017 HISTORY OF PRESENT ILLNESS: This is a 57-year-old male with history of HIV, who came to the hospital with nausea, vomiting, and abdominal pain. The patient was seen and worked up. He was found to have evidence of a bowel obstruction. He was admitted and seen by GI and General Surgery. PAST MEDICAL HISTORY: As discussed above is notable for HIV positivity. PAST SURGICAL HISTORY: None reported. HOME MEDICATIONS: Atripla, azithromycin eyedrops, and prednisone. HABITS: Denies any headaches, hematemesis, melena, hematochezia, night sweats, or weight loss. PHYSICAL EXAMINATION: GENERAL: A middle-aged male. VITAL SIGNS: Blood pressure 140/70, heart rate 84, afebrile. HEENT: Unremarkable. LUNGS: Clear breath sounds bilaterally. ABDOMEN: Soft. NEUROLOGIC: Nonfocal. LABORATORY AND DIAGNOSTIC DATA: Lab testing is noncontributory with normal CBC and BMP. Borderline low potassium of 3.4 and glucose 122. Coags are negative. Urinalysis negative. Imaging studies, as discussed above notable for evidence of bowel obstruction on CT of the abdomen. IMPRESSION: 1. Human immunodeficiency virus positivity. 2. History of conjunctivitis. 3. Small bowel obstruction. DISCUSSION: Admit to the hospital. We will discuss with GI and General Surgery regarding further plan. At this time, it appears that conservative management will be appropriate. The patient is NPO with IV fluids with NG to intermittent suction. We will continue to follow carefully. Breezy Reyna M.D. DR: Zarina JOB#: [id number] CC:
--- NOTE | 2017-12-11 23:45 | Consultation ---
DATE OF CONSULTATION: 12/11/2017 INFECTIOUS DISEASE CONSULT This consult is for coverage of Dr. Raphael. CONSULTING PHYSICIAN: Arian López M.D. PRIMARY ATTENDING PHYSICIAN: Breezy Reyna M.D. REASON FOR CONSULTATION: HIV and small bowel obstruction. HISTORY OF PRESENT ILLNESS: This is a 57-year-old male admitted on December 09, complaining of diffuse abdominal pain, nausea, and vomiting. The patient had CT scan of the abdomen and pelvis that showed a small bowel obstruction. Since admission, he is NPO, doing better. PAST MEDICAL HISTORY: HIV. The patient had a good CD4. MEDICATIONS: Getting Zosyn, heparin, Pepcid, morphine, Zofran, Compazine, and Mylanta. ALLERGIES: No known drug allergies. SOCIAL HISTORY: Negative for alcohol, drug abuse, or smoking. Single. Working in [employer]. FAMILY HISTORY: Significant for prostate cancer in brother and father. REVIEW OF SYSTEM: Has discomfort with NG tube. Today, no nausea, no vomiting. Feels hungry. No pain. Passed gas, but no bowel movement. PHYSICAL EXAMINATION: VITAL SIGNS: Temperature 98, pulse 89, blood pressure 137/80. GENERAL APPEARANCE: No acute distress. Well developed. HEAD AND NECK: NG tube. nontender, soft. HEART: S1 and S2, regular. LUNGS: Clear. ABDOMEN: Mildly distended, soft. EXTREMITIES: Has no edema. LABORATORY DATA: Sodium 139, potassium 3.3, chloride 106, bicarbonate 26, BUN 10, creatinine 0.9, glucose is 88. WBC 5.6, hemoglobin 13.6, hematocrit 39.6. The patient has significant lymphocytosis, 52.1, monocytosis of 10.5. CT scan of the abdomen and pelvis, suspension of a small bowel obstruction with transition somewhere in the distal, Jejunum or proximal ileal in the right side of the abdomen. IMPRESSION: Small bowel obstruction, seems to be partial. The patient developed some improvement since admission. Has human immunodeficiency virus. Currently, human immunodeficiency virus medication on hold because of NPO status. RECOMMENDATION: Discontinue Zosyn. Observe off antibiotics. We will start HIV medication whenever the patient can eat again. At the end of my exam, I thank Dr. Reyna, for involving me in the care of this patient. Arian López M.D. DR: Dwayne JOB#: [id number] CC: RAMON
[2017-12-12] VITALS: BP 140/76
[2017-12-12 04:00] VITALS: BP 127/73
[2017-12-12] MEDS: D5 1/2NS w/KCl 20mEq 1,000 ML IV SCH ×2 (05:00→15:30)
[2017-12-12 08:00] VITALS: BP 127/67
[2017-12-12] MEDS: Heparin 5000 units/ml inj SUBQ SCH ×2 (09:45→21:07)
--- NOTE | 2017-12-12 10:17 | Pulmonology Progress Note ---
Assessment/Plan Assessment/Plan Problem List: (1) HIV (human immunodeficiency virus infection) ICD Codes: B20 - Human immunodeficiency virus [HIV] disease (2) Small bowel obstruction ICD Codes: K56.609 - Unspecified intestinal obstruction, unspecified as to partial versus complete obstruction Assessment/Plan SBO resolving For UGI series today Replace K Subjective Interval Events: Plans noted for UGI this AM Constitutional: Reports: no symptoms HEENT: Repors: no symptoms Respiratory: Reports: no symptoms Cardiovascular: Reports: no symptoms Gastrointestinal/Abdominal: Reports: no symptoms Allergies: Coded Allergies: No Known Allergies (Unverified , 09/02/12) Objective Last 24 Hour Vital Signs Date Time Temp Pulse Resp B/P (MAP) Pulse Ox O2 Delivery O2 Flow Rate FiO2 12/12/17 08:00 97.7 78 20 127/67 96 12/12/17 04:00 97.9 82 21 127/73 97 12/12/17 00:00 97.5 93 21 140/76 95 12/11/17 20:00 99.7 103 21 155/89 96 12/11/17 15:56 99.7 100 20 137/97 99 Room Air 12/11/17 12:15 98.0 89 20 137/80 97 Room Air Intake and Output 12/11/17 12/12/17 19:00 07:00 Intake Total 1000 ml 1000 ml Output Total 600 ml Balance 400 ml 1000 ml Intake IV Total 1000 ml 1000 ml Output Urine Total 600 ml # Voids 2 2 General Appearance: no acute distress HEENT: normocephalic Respiratory/Chest: chest wall non-tender, lungs clear Cardiovascular: normal peripheral pulses Abdomen: hypoactive bowel sounds Extremities: no cyanosis Current Medications Medications (Trade) Dose Ordered Sig/Delmer Route PRN Reason Start Time Stop Time Status Last Admin Dose Admin Al Hydroxide/Mg Hydroxide (Mylanta II) 30 ml Q6H PRN ORAL dyspepsia 12/09/17 16:15 01/08/18 16:14 Dextrose (Dextrose 50%) STAT PRN IV Hypoglycemia 12/09/17 16:15 01/08/18 16:14 Dextrose/ Electrolytes 1,000 ml @ 100 mls/hr Q10H IV 12/09/17 17:30 01/08/18 17:29 12/12/17 05:00 Famotidine (Pepcid I.v.) 20 mg Q12HR IVP 12/09/17 21:00 01/08/18 20:59 12/12/17 09:44 Heparin Sodium (Porcine) (Heparin 5000 units/ml) 5,000 units EVERY 12 HOURS SUBQ 12/09/17 21:00 01/08/18 20:59 12/12/17 09:45 Lorazepam (Ativan 2mg/ml 1ml) 0.5 mg Q4H PRN IV For Anxiety 12/09/17 16:15 12/16/17 16:14 12/11/17 22:07 Morphine Sulfate (Morphine Sulfate) 1 mg EVERY 4 HOURS PRN IVP Mild Pain (Pain Scale 1-3) 12/09/17 16:15 12/16/17 16:14 Morphine Sulfate (Morphine Sulfate) 2 mg EVERY 4 HOURS PRN IVP Moderate Pain (Pain Scale 4-6) 12/09/17 16:15 12/16/17 16:14 Morphine Sulfate (Morphine Sulfate) 4 mg EVERY 4 HOURS PRN IVP Severe Pain (Pain Scale 7-10) 12/09/17 16:15 12/16/17 16:14 Ondansetron HCl (Zofran) 4 mg Q6H PRN IVP Nausea & Vomiting 12/09/17 16:15 01/08/18 16:14 Phenol/Menthol (Chloraseptic) 1 spray Q3H PRN ORAL Sore Throat 12/11/17 16:30 01/10/18 16:29 12/11/17 18:02 Prochlorperazine (Compazine) 10 mg Q6H PRN IVP Nausea & Vomiting 12/09/17 16:15 01/08/18 16:14 Breezy Reyna MD Dec 12, 2017 10:17
--- NOTE | 2017-12-12 11:05 | GI Progress Note ---
Assessment/Plan Problems: (1) Small bowel obstruction ICD Codes: K56.609 - Unspecified intestinal obstruction, unspecified as to partial versus complete obstruction SNOMED: 790270085 Status: unchanged Status Narrative Discussed with Dr. Ellington. Assessment/Plan ? SBO resolving >> SBFT today fu surgical recs NGT to [facility] pain mgmt NPO + IVFs fu labs last colonoscopy per patient a year ago Subjective Gastrointestinal/Abdominal: Reports: no symptoms Objective Last 24 Hour Vital Signs Date Time Temp Pulse Resp B/P (MAP) Pulse Ox O2 Delivery O2 Flow Rate FiO2 12/12/17 08:00 97.7 78 20 127/67 96 12/12/17 04:00 97.9 82 21 127/73 97 12/12/17 00:00 97.5 93 21 140/76 95 12/11/17 20:00 99.7 103 21 155/89 96 12/11/17 15:56 99.7 100 20 137/97 99 Room Air 12/11/17 12:15 98.0 89 20 137/80 97 Room Air Intake and Output 12/11/17 12/12/17 19:00 07:00 Intake Total 1000 ml 1000 ml Output Total 600 ml Balance 400 ml 1000 ml Intake IV Total 1000 ml 1000 ml Output Urine Total 600 ml # Voids 2 2 Height (Feet): 6 Height (Inches): 0.00 Weight (Pounds): 260 General Appearance: WD/WN, no apparent distress, alert Cardiovascular: normal rate Respiratory/Chest: normal breath sounds, no respiratory distress Abdominal Exam: normal bowel sounds, non tender, soft Extremities: normal range of motion, non-tender Mandy Patterson N.P. Dec 12, 2017 11:05
--- NOTE | 2017-12-12 15:17 | General Surgery Progress Note ---
General Surgery-Progress Note Subjective Symptoms: improved, pain absent, passing flatus, BM Additional Comments doing much better. had upper GI study then large BM. no n/v/f/c. Objective Last 24 Hour Vital Signs Date Time Temp Pulse Resp B/P (MAP) Pulse Ox O2 Delivery O2 Flow Rate FiO2 12/12/17 08:00 97.7 78 20 127/67 96 12/12/17 04:00 97.9 82 21 127/73 97 12/12/17 00:00 97.5 93 21 140/76 95 12/11/17 20:00 99.7 103 21 155/89 96 12/11/17 15:56 99.7 100 20 137/97 99 Room Air I&O Intake and Output 12/11/17 12/12/17 19:00 07:00 Intake Total 1000 ml 1000 ml Output Total 600 ml Balance 400 ml 1000 ml Intake IV Total 1000 ml 1000 ml Output Urine Total 600 ml # Voids 2 2 Drains: none Cardiovascular: RSR Respiratory: clear Abdomen: soft, flat, non-tender, present bowel sounds Extremities: no edema Plan Problems: (1) Small bowel obstruction Assessment & Plan: 57M with virgin abdomen presented with SBO. CT scan reviewed and transition point possibly in lower abdomen but not completely defined. No acute pathology identified. Stomach and bowel significantly distended with food particles. On exam distended, non tender. Unfortunately a 57 year old male with virgin abdomen and small bowel obstruction is very concerning. possible malignant process? given history of long tern HIV multiple other differentials as well. fortunately exam benign at this time. Will begin with conservative management and bowel decompression. Then will need further work up over the next few days. May likely need surgery during this admission but given stable now will benefit from decompression and optimization prior to operation. Upper GI today. pending results. had large BM after. NG tube removed started on clear liquids. if etiology can be identified may need further treatment vs dx vs surgery thank you for this consult. will follow with recs. Nawaf Wolff Dec 12, 2017 15:17
[2017-12-12 16:00] VITALS: BP 131/72
--- NOTE | 2017-12-12 16:24 | Diagnostic Imaging Report ---
Indication: Abdominal distention, history of small bowel obstruction on recent cross-sectional imaging Technique: 240 mL of Gastrografin injected via previously placed nasogastric tube. Serial overhead images obtained. Spot images of the ileum also obtained Total fluoroscopy time zero minutes. Total dose area product 54 dGycm2 . Comparison: none. Reference made to CT scan dated 12/09/2017 Findings: Initial images demonstrate some reflux of contrast into the esophagus. Proximal port of the nasogastric tube may not be beyond the gastroesophageal junction although initial sugar controller image suggests such. Subsequent images demonstrate rapid transit of contrast through nondilated small bowel loops. Normal small bowel mucosal pattern is demonstrated. Contrast is seen within the colon at about 90 minutes Impression: Essentially unremarkable exam. Contrast transits the small bowel in about 90 minutes. No evidence of obstruction Note reflux of contrast into the distal esophagus. This may in part be due to nasogastric tube not being quite in far enough. Advancement recommended. This was discussed with the patient's nurse at the time of interpretation
[2017-12-12 20:00] VITALS: BP 139/84
--- NOTE | 2017-12-15 09:18 | Discharge Summary ---
Discharge Summary Hospital Course Date of Admission Dec 09, 2017 at 14:10 Date of Discharge Dec 12, 2017 at 23:06 Admitting Diagnosis small bowel obstruction MARY Persaud is a 57 year old male who was admitted on Dec 09, 2017 at 14:10 for Small Bowel Obstruction Hospital Course dc summary #[id number] Discharge Condition Upon Discharge: stable Discharge Disposition Patient was discharged to [facility] as per insurance Discharge Diagnoses: Discharge Instructions Discharge Instructions Special Instructions I have been assigned to complete a D/C Summary on this account. I was not involved in the patient management Carlie Chen NP ([place]) Dec 15, 2017 09:18
--- NOTE | 2017-12-15 23:30 | Discharge Summary 2 SIG ---
DATE OF ADMISSION: 12/09/2017 DATE OF DISCHARGE: 12/12/2017 REASON FOR ADMISSION: 57-year-old male, with history of human immunodeficiency virus, presented to emergency department with complaint of diffuse abdominal pain. CT of the abdomen and pelvis revealed small-bowel obstruction. The patient was admitted with diagnosis of small bowel obstruction for further management. HOSPITAL COURSE: The patient was admitted. GI and Surgery consults were requested. The patient was kept NPO on the IV fluids. NG tube was connected to low intermittent suctioning. Output was closely monitored. Surgery cleared for ice chips. Eventually, the patient was passing flatus and was out of bed as tolerated. Pain management provided. Antiemetic provided as needed. The patient was followed up with the KUB. DVT and GI prophylaxis provided. Potassium was replaced for persistent hypokalemia. Surgeon closely followed. Abdominal exam revealed less distention and no tenderness. Last KUB showed some improvement. On day of discharge, the patient had a large bowel movement. Small bowel follow-through earlier showed no obstruction. NG tube was removed. The patient was started on clear liquid diet and was able to tolerate it. [place] [facility] [place] FINAL DIAGNOSES: 1. Small bowel obstruction, resolved. 2. Human immunodeficiency virus status. 3. Hypokalemia. DISCHARGE MEDICATIONS: List of medication was sent to accepting facility. DISCHARGE INSTRUCTIONS: [place] [facility] [place] further management. Breezy Reyna M.D. I have been assigned to dictate discharge summary on this account and I was not involved in the patient's management. Carlie Chen ([place]te[place]) NJose Francisco DR: VALERIANO JOB#: [id number] CC: RAMON
== END 2017-12-12 23:06 | disposition short-term general hospital (02) | DRG 388 ==
LOC: EMR 11:10 → 4E 14:10 → EDBEDREQ 15:46
DX: K56.609 Unspecified intestinal obstruction, unspecified as to partial versus complete obstruction (principal); B20 Human immunodeficiency virus [HIV] disease; E87.6 Hypokalemia
CPT/HCPCS: 36415; 74018; 74177; 74250; 80048; 80053; 80061; 81003; 83036; 83690; 83880; 84443; 85025; 85610; 85730; 99285; J2405